=== PATIENT | male | born 1960 | race Caucasian/White ===

== ENCOUNTER 2022-04-29 10:05 | Observation (INO) | payer OTHER, MEDICAID ==
[2022-04-29] MEDS ORDERED: Dextrose 50% Abboject 50 ML SYRINGE SLOW IVP PRN (12:32)
[2022-04-29] MEDS ORDERED: TETANUS, DIPHTHERIA TOX,ADULT (TDVAX) 0.5 ML VIAL IM ONE (12:32)
[2022-04-29] MEDS ORDERED: Ondansetron PF 4 MG/2 ML Vial IVP PRN (12:32)
[2022-04-29] MEDS ORDERED: Morphine 4 MG/ML VIAL SLOW IVP PRN ×2 (12:32→13:54)
[2022-04-29] MEDS ORDERED: Dextrose 5% in Water 1,000 ML IV PRN (12:32)
[2022-04-29] MEDS ORDERED: hydrALAZINE 20 MG/ML VIAL SLOW IVP PRN (12:32)
[2022-04-29 13:13] VITALS: BMI 32.5
[2022-04-29] MEDS: Sodium Chloride 0.9% 1,000 ML IV SCH ×2 (14:46→22:10)
[2022-04-29] MEDS ORDERED: Ondansetron HCl/PF 4 MG/2 ML Vial IVP PRN (17:23)
[2022-04-29] MEDS ORDERED: Promethazine HCl 25 MG/ML VIAL IVPB PRN (17:23)
[2022-04-29] MEDS ORDERED: Promethazine HCl 25 MG/ML VIAL IM PRN (17:23)
[2022-04-29] MEDS ORDERED: Bupivacaine/Epinephrine 0.25% 30 ML VIAL ONE (17:26)
[2022-04-29] MEDS ORDERED: SUGAMMADEX SODIUM 200 MG/2 ML VIAL ONE (17:30)
[2022-04-29] MEDS ORDERED: fentaNYL PF 100 MCG/2 ML SYRINGE ONE (17:30)
[2022-04-29] MEDS ORDERED: Sodium Chloride 0.9% 0 ML ONE (17:35)
[2022-04-29] MEDS ORDERED: CEFAZOLIN 2 GM VIAL ONE (17:35)
[2022-04-29] MEDS ORDERED: Ketorolac Tromethamine 30 MG/ML VIAL ONE (17:48)
[2022-04-29] MEDS ORDERED: Rocuronium Bromide 10 MG/ML (10ML VIAL) ONE (17:48)
[2022-04-29] MEDS ORDERED: Ondansetron PF 4 MG/2 ML Vial ONE (17:48)
[2022-04-29] MEDS ORDERED: PROPOFOL 200 MG/20 ML VIAL ONE (17:48)
[2022-04-29] MEDS ORDERED: Succinylcholine 200 MG/10 ml SYRINGE FS ONE (17:48)
[2022-04-29] MEDS ORDERED: Clindamycin/D5W 900 mg/50 ml Premix Bag ONE (17:56)
[2022-04-29] MEDS: Acetaminophen 325 MG TAB PO SCH (19:30)
[2022-04-29] MEDS ORDERED: FENTANYL 50 MCG/ML 1 ML VIAL ONE (19:51)
[2022-04-29] MEDS: Famotidine/PF 20 mg/2ml Vial SLOW IVP SCH (22:10)
[2022-04-30] MEDS: Acetaminophen 325 MG TAB PO SCH ×2 (00:49→06:05)
[2022-04-30] MEDS: traMADol HCl 50 MG TAB PO SCH ×4 (00:50→17:11)
[2022-04-30] MEDS: Sodium Chloride 0.9% 1,000 ML IV SCH (06:05)
[2022-04-30 07:34] LABS: #Lymphocytes 1.6 thou/uL (1.20-3.40); #Monocytes 0.8 thou/uL (0.11-0.59); #Neutrophils 6.9 thou/uL (1.40-6.50); %Basophils 0.2 % (0.0-1.0); %Eosinophils 0.2 % (0.0-10.0); %Lymphocytes 16.7 % (21.0-51.0); %Monocytes 8.5 % (0.0-10.0); %Neutrophils 74.5 % (42.0-75.0); Mean Corpuscular HGB CONC 33.1 g/dL (32.0-36.0); Mean Corpuscular Hemoglobin 31.7 pg (27.0-31.0); Mean Corpuscular Volume 95.7 fl (78.0-98.0); Mean Platelet Volume 7.9 fL (7.4-10.4); Platelet Count 193 10x3/uL (130-400); RBC Distribution Width 12.1 % (11.5-14.5); Red Blood Cell (RBC) Count 4.11 mill/uL (4.70-6.10); White Blood Cell (WBC) Count 9.3 10x3/uL (4.8-10.8)
[2022-04-30 08:14] LABS: Anion Gap 9 mmol/L (10-20); BUN (Urea Nitrogen) 9 mg/dL (8.4-25.7); Calc. Creatinine Clearance 125 mL/min (70-130); Calcium 7.7 mg/dL (7.8-10.44); Carbon Dioxide 25 mmol/L (23-31); Chloride 107 mmol/L (98-107); Estimated GFR 104; Glucose 115 mg/dL (80-115); Magnesium 1.8 mg/dL (1.6-2.6); Phosphorus 3.4 mg/dL (2.3-4.7); Potassium 3.8 mmol/L (3.5-5.1); Sodium 137 mmol/L (136-145)
[2022-04-30] MEDS: Famotidine/PF 20 mg/2ml Vial SLOW IVP SCH ×3 (08:55→21:55)
[2022-04-30] MEDS ORDERED: FLU VACC QS2022-23(6MOS UP)/PF 60 MCG/0.5 ML SYRINGE IM ONE (09:00)
[2022-04-30] MEDS ORDERED: PHOS-NAK 1 PKT PACK PO SCH (12:00)
[2022-04-30] MEDS ORDERED: Magnesium 2 GM/50 ML(in water) 2 GM in Premix Bag 1 BAG IVPB SCH (12:00)
[2022-04-30] MEDS ORDERED: Tamsulosin HCl 0.4 MG CAP PO SCH (12:30)
[2022-04-30] MEDS: traMADol HCl 50 MG TAB PO PRN ×2 (15:52→21:52)
[2022-04-30 16:15] LABS: Bacteria/HPF None Seen HPF (None Seen); Bilirubin Negative (Negative); Blood, Urine Negative (Negative); CAUTI Indications for Culture Dysuria,urgency,freq; Clarity Clear (Clear); Glucose, Urine (Dipstick) Normal (Negative); Ketone, Urine Trace mg/dL (Negative); Leukocyte Negative Leu/uL (Negative); Nitrite Negative (Negative); Protein, Urine (Dipstick) 10 mg/dL (Neg-Trace); RBC/HPF 0-3 HPF (0-3); Squamous Epithelial None Seen HPF (0-3); Urobilinogen Normal mg/dL (Less than 2); WBC/HPF 0-3 HPF (0-3)
[2022-04-30 16:16] LABS: Urine Culture Reflex No No
[2022-04-30] MEDS: Acetaminophen 500 MG TAB PO SCH (17:10)
[2022-04-30] MEDS: Senokot S 8.6-50 MG TAB PO SCH (21:46)
[2022-05-01] MEDS: Acetaminophen 500 MG TAB PO SCH ×3 (00:17→12:04)
[2022-05-01] MEDS: traMADol HCl 50 MG TAB PO SCH ×3 (00:18→12:05)
[2022-05-01 07:37] VITALS: TEMP 98.1
[2022-05-01] MEDS ORDERED: Bisacodyl 10 MG SUPP PR SCH (08:00)
[2022-05-01] MEDS ORDERED: Polyethylene Glycol 3350 17 GM Packet PO SCH (09:00)
[2022-05-01] MEDS ORDERED: Tamsulosin HCl 0.4 MG CAP PO SCH (09:00)
[2022-05-01] MEDS: Senokot S 8.6-50 MG TAB PO SCH (09:11)
[2022-05-01] MEDS: Famotidine/PF 20 mg/2ml Vial SLOW IVP SCH (09:31)
[2022-05-01 11:24] VITALS: BP 164/73
== END 2022-05-01 13:30 | disposition home or self-care (01) ==
LOC: SURG A 10:05 → SURG B 11:14
PROVIDERS: ADMIT Surgery; ATTEND Surgery
PROC: 0WUF0JZ Supplement Abdominal Wall with Synthetic Substitute, Open Approach (ICD-10-PCS; principal; 2022-04-29)
DX: K42.0 Umbilical hernia with obstruction, without gangrene (principal); R33.9 Retention of urine, unspecified; Z88.0 Allergy status to penicillin
CPT/HCPCS: 49587; 51701; 74018; 80048; 81001; 83735; 84100; 85025; 96374; 96375 ×2; 96376; C1781; G0378 ×3; J3010; 36415; 51798; 88302; J1885; J2270; J2405; J2704; J3475; J3490; J7050; S0028